=== PATIENT | female | born 1990 | race Caucasian/White ===

== ENCOUNTER 2017-05-20 17:33 | Emergency (ER) | payer OTHER ==
[~2017-05-20] VITALS: Ht 170.1 cm; Wt 104.3 kg
[~2017-05-20 17:33] MED LIST: AMOXICILLIN500 M2 PO; AMOXICILLIN500 MG PO; ANAPROX DS550 MG PO; AUGMENTIN 875 M1 TAB PO; CLINDAMYCIN HC300 MG PO; NKHM; ZOFRAN ODT4 MG SL; ZOFRAN4 MG PO; [UNRECOGNIZED DRUG - OTHER] PO
[2017-05-20] MEDS ORDERED: NORCO 5-325 TA1 EACH PO (18:27)
[2017-05-20] MEDS ORDERED: ANAPROX DS550 MG PO (18:27)
== END 2017-05-20 18:46 | disposition home or self-care (01) ==
LOC: ED 17:33
DX: S92.512A Displaced fracture of proximal phalanx of left lesser toe(s), initial encounter for closed fracture (principal); W01.0XXA Fall on same level from slipping, tripping and stumbling without subsequent striking against object, initial encounter; Y93.89 Activity, other specified; Y92.89 Other specified places as the place of occurrence of the external cause; Y99.9 Unspecified external cause status

== ENCOUNTER 2017-09-18 12:18 | Emergency (ER) | payer OTHER ==
[~2017-09-18] VITALS: Ht 172.7 cm; Wt 108.9 kg
[~2017-09-18 12:18] MED LIST changes: +NORCO 5-325 TA1 EACH PO
[2017-09-18] MEDS ORDERED: CLARITIN10 MG PO (12:26)
[2017-09-18] MEDS ORDERED: PREDNISONE10 MG PO (12:26)
[2017-09-18] MEDS ORDERED: FLONASE ALLERG9.9 ML NAS (12:26)
[2017-09-18] MEDS ORDERED: ROBITUSSIN DM 105 ML PO (12:26)
== END 2017-09-18 13:42 | disposition home or self-care (01) ==
LOC: ED 12:18
DX: B34.9 Viral infection, unspecified (principal); J02.9 Acute pharyngitis, unspecified

== ENCOUNTER 2017-09-29 15:39 | Emergency (ER) | payer OTHER ==
[~2017-09-29] VITALS: Wt 108.9 kg
[~2017-09-29 15:39] MED LIST changes: +CLARITIN10 MG PO; +FLONASE ALLERG9.9 ML NAS; +PREDNISONE10 MG PO; +ROBITUSSIN DM 105 ML PO
[2017-09-29 16:07] LABS: BILIRUBIN 1+ (NEGATIVE); BLOOD 1+ (NEGATIVE); CLARITY SL CLOUDY (CLEAR); COLOR YELLOW (YELLOW); GLUCOSE NEGATIVE (NEGATIVE); KETONE 3+ (NEGATIVE); LEUKO ESTERASE NEGATIVE (NEGATIVE); NITRITE NEGATIVE (NEGATIVE); PH 6.5 (5.0-9.0); SPECIFIC GRAVITY 1.025 (1.005-1.030)
[2017-09-29 16:17] LABS: BACTERIA TRACE; EPITHELIAL CELLS 50-55; MUCOUS 1+; YEAST 1+
[2017-09-29] MEDS ORDERED: IBU800 MG PO (16:57)
[2017-09-29] MEDS ORDERED: TAMIFLU 75MG CA75 MG PO (16:57)
== END 2017-09-29 17:02 | disposition home or self-care (01) ==
LOC: ED 15:39
PROVIDERS: Physician Assistant
DX: J10.1 Influenza due to other identified influenza virus with other respiratory manifestations (principal); Z79.899 Other long term (current) drug therapy

== ENCOUNTER 2017-10-03 14:17 | Emergency (ER) | payer OTHER ==
[~2017-10-03] VITALS: Ht 172.7 cm; Wt 108.9 kg
[~2017-10-03 14:17] MED LIST changes: +IBU800 MG PO; +TAMIFLU 75MG CA75 MG PO
[2017-10-03 16:23] LABS: HEMATOCRIT 44.2 % (37.0-47.0); HEMOGLOBIN 14.3 g/dl (12.0-16.0); MEAN CELL VOLUME 89.7 fl (81.0-99.0); MEAN CORPUSCULAR HGB CONC 32.4 g/dl (33.0-37.0); PLATELET COUNT AUTOMATED 99 10*3/uL (130-400); RED BLOOD COUNT 4.93 10*6/uL (4.10-5.10); RED CELL DISTRI WIDTH 13.1 % (0-14.5); WHITE BLOOD COUNT 4.2 10*3/uL (4.8-10.8)
[2017-10-03 16:43] LABS: ATYPICAL LYMPHS 3 % (0-0); TOTAL CELLS COUNTED 100 #CELLS
[2017-10-03 16:44] LABS: PLATELET SUFFICIENCY LOW (NORMAL)
[2017-10-03 16:48] LABS: ALBUMIN 3.3 gm/dl (3.1-4.5); ALKALINE PHOSPHATASE 53 U/L (45-117); BUN 5 mg/dl (7-24); CHLORIDE 103 mmol/L (98-107); CREATININE 0.47 mg/dL (0.55-1.02); POTASSIUM 3.5 mmol/L (3.5-5.1); SGOT/AST 29 IU/L (3-35); SGPT/ALT 20 U/L (12-78); SODIUM 137 mmol/L (136-145); TOTAL PROTEIN 7.6 gm/dL (6.4-8.2)
[2017-10-03] MEDS ORDERED: ZITHROMAX250 MG PO (16:53)
== END 2017-10-03 17:00 | disposition home or self-care (01) ==
LOC: ED 14:17
PROVIDERS: Nurse Practitioner Family
DX: J18.1 Lobar pneumonia, unspecified organism (principal); F17.200 Nicotine dependence, unspecified, uncomplicated; Z79.899 Other long term (current) drug therapy

== ENCOUNTER → 2021-06-11 | Outpatient (CLI) | payer OTHER ==
[~2021-06-11] MED LIST changes: +ZITHROMAX250 MG PO
== END | disposition home or self-care (01) ==
LOC: COVID19 17:06
PROVIDERS: ATTEND Podiatrist Foot & Ankle Surgery
DX: U07.1 COVID-19 (principal)

== ENCOUNTER 2023-01-05 18:07 | Emergency (ER) | payer MEDICAID ==
[~2023-01-05] VITALS: Ht 172.7 cm; Wt 113.4 kg
[2023-01-05] MEDS ORDERED: AMOX-CLAV 875-1 EACH PO (18:30)
== END 2023-01-05 18:34 | disposition home or self-care (01) ==
LOC: ED 18:07
DX: J02.0 Streptococcal pharyngitis (principal); Z79.2 Long term (current) use of antibiotics; Z79.899 Other long term (current) drug therapy

== ENCOUNTER 2024-01-20 14:57 | Emergency (ER) | payer MEDICAID ==
[~2024-01-20] VITALS: Ht 172.7 cm; Wt 106.6 kg
[~2024-01-20 14:57] MED LIST changes: +AMOX-CLAV 875-1 EACH PO
[2024-01-20 15:32] LABS: BILIRUBIN Negative (Negative); BLOOD 3+ (Negative); CLARITY Turbid (Clear); COLOR Red (Yellow); GLUCOSE Negative (Negative); KETONE Negative (Negative); LEUKO ESTERASE 2+ (Negative); NITRITE Negative (Negative); UROBILINOGEN 0.2 E.U./dl (0.0-1.0)
[2024-01-20 15:42] LABS: PH 8.5 (4.5-8.0)
[2024-01-20 15:44] LABS: BACTERIA 1+; RBC TNTC rbc/hpf (0-2)
[2024-01-20 15:49] LABS: BASO # 0.1 10*3/uL (0.0-0.1); BASO % 0.8 % (0.0-1.0); EOS # 0.3 10*3/uL (0.0-0.4); EOS % 2.8 % (1.0-4.0); HEMATOCRIT 38.3 % (37.0-47.0); LYMPH # 2.3 10*3/uL (1.3-4.4); LYMPH % 23.8 % (27.0-41.0); MEAN CELL VOLUME 94.6 fl (81.0-99.0); MEAN CORPUSCULAR HGB 30.1 pg (27.0-31.0); MEAN CORPUSCULAR HGB CONC 31.9 g/dl (33.0-37.0); MEAN PLATELET VOLUME 9.8 fl (9.6-12.3); MONO # 1.1 10*3/uL (0.1-1.0); MONO % 11.3 % (3.0-9.0); NEUT # 5.9 10*3/uL (2.3-7.9); NEUT % 61.1 % (47.0-73.0); PLATELET COUNT AUTOMATED 215 10*3/uL (130-400); RED BLOOD COUNT 4.05 10*6/uL (4.10-5.10); RED CELL DISTRI WIDTH 13.4 % (0-14.5); WHITE BLOOD COUNT 9.6 10*3/uL (4.8-10.8)
[2024-01-20 16:22] LABS: ALKALINE PHOSPHATASE 50 U/L (46-116); BUN 7 mg/dl (9-23); CHLORIDE 110 mmol/L (98-107); POTASSIUM 3.8 mmol/L (3.4-5.1); SGPT/ALT 9 U/L (5-49); TOTAL PROTEIN 7.2 gm/dL (6.0-8.0)
[2024-01-20] MEDS ORDERED: AMOX-CLAV 875-1 EACH PO (16:48)
== END 2024-01-20 17:00 | disposition home or self-care (01) ==
LOC: ED 14:57
PROVIDERS: Physician Assistant Medical
DX: O03.9 Complete or unspecified spontaneous abortion without complication (principal); O23.41 Unspecified infection of urinary tract in pregnancy, first trimester; N39.0 Urinary tract infection, site not specified; Z3A.01 Less than 8 weeks gestation of pregnancy

== ENCOUNTER 2025-02-16 16:46 | Emergency (ER) | payer MEDICAID ==
[~2025-02-16] VITALS: Ht 172.7 cm; Wt 104.3 kg
[2025-02-16] MEDS ORDERED: ACETAMINOPHEN 325 MG TAB PO ONE (18:55)
== END 2025-02-16 19:17 | disposition left against medical advice (07) ==
LOC: ED 16:46
DX: J31.0 Chronic rhinitis (principal); J02.9 Acute pharyngitis, unspecified